=== PATIENT | male | born 1960 | race Caucasian/White ===

== ENCOUNTER 2017-11-02 12:42 | Emergency (ER) | payer BC ==
[2017-11-02 13:17] VITALS: BP 137/87
--- NOTE | 2017-11-02 14:07 | UC ---
Respiratory Complaint HPI - HPI Summary HPI Summary: 57 yo male with cough x 4 days usually not productive f/c no n/v/d Head hurts when he coughs hard time sleeping due to cough hx bronchitis - History of Current Complaint Chief Complaint: UCRespiratory Stated Complaint: SALAZAR/COUGH Time Seen by Provider: 11/02/17 13:54 Hx Obtained From: Patient Onset/Duration: Gradual Onset, Lasting Days Timing: Constant Severity Initially: Moderate Severity Currently: Moderate Pain Intensity: 7 Pain Scale Used: 0-10 Numeric Character: Cough: Nonproductive Aggravating Factors: Recumbent Position Alleviating Factors: Nothing Associated Signs And Symptoms: Positive: Fever, Chills, Wheezing, Nasal Congestion - Allergies/Home Medications Allergies/Adverse Reactions: Allergies Allergy/AdvReac Type Severity Reaction Status Date / Time meropenem Allergy Rash And Verified 11/02/17 13:06 Itching zyban Allergy Rash And Uncoded 11/02/17 13:07 Itching Home Medications: Home Medications Acetaminophen [Acetaminophen Extra Strength] 1,000 mg PO Q4H PRN 11/02/17 [ History Confirmed 11/02/17] Ultraman Multivitamin 1 tab PO DAILY 11/02/17 [History Confirmed 11/02/17] PMH/Surg Hx/FS Hx/Imm Hx Previously Healthy: Yes Endocrine History: Dyslipidemia Cardiovascular History: Cardiac Disease, Hypertension Respiratory History: Bronchitis, Pneumonia - Surgical History Surgical History: Yes Surgery Procedure, Year, and Place: double bypass; colonosopy and endoscopy done 05/2015 with polyps found; pt cannot remember if the polyps were removed. - Family History Known Family History: Positive: Cardiac Disease, Hypertension - Social History Alcohol Use: Daily Alcohol Amount: 2-3 PER DAY Substance Use Type: None Smoking Status (MU): Former Smoker Type: Cigarettes Have You Smoked in the Last Year: No - Immunization History Most Recent Influenza Vaccination: FALL 2013 Most Recent Tetanus Shot: UP TO DATE Most Recent Pneumonia Vaccination: NEVER Review of Systems Constitutional: Fever, Chills, Fatigue Skin: Negative Eyes: Negative ENT: Nasal Discharge Respiratory: Cough Cardiovascular: Negative Gastrointestinal: Negative Genitourinary: Negative Motor: Negative Neurovascular: Negative Musculoskeletal: Myalgia Neurological: Headache Psychological: Negative Is Patient Immunocompromised?: No All Other Systems Reviewed And Are Negative: Yes Physical Exam Triage Information Reviewed: Yes Appearance: Well-Appearing, No Pain Distress, Well-Nourished Vital Signs: Initial Vital Signs Temp 98.2 F 11/02/17 13:13 Pulse 96 11/02/17 13:13 Resp 20 11/02/17 13:13 BP 137/87 11/02/17 13:13 Pulse Ox 98 11/02/17 13:13 Eyes: Positive: Conjunctiva Clear ENT: Positive: Hearing grossly normal, Nasal congestion, TMs normal, Uvula midline. Negative: Nasal drainage, Trismus, Muffled voice, Hoarse voice, Dental tenderness, Sinus tenderness Neck: Positive: Supple, Nontender, No Lymphadenopathy Respiratory: Positive: No respiratory distress, No accessory muscle use, Wheezing - with forced expiration Cardiovascular: Positive: RRR, No Murmur Musculoskeletal: Positive: ROM Intact, No Edema Neurological: Positive: Alert Psychological Exam: Normal Skin Exam: Normal UC Diagnostic Evaluation - Laboratory O2 Sat by Pulse Oximetry: 98 - normal/not hypoxic Re-Evaluation - Re-Evaluation First Eval Re-Evaluation Time: 14:45 Change: Improved - lungs clear Respiratory Course/Dx - Differential Dx/Diagnosis Provider Diagnoses: acute bronchitis Discharge - Discharge Plan Condition: Stable Disposition: HOME Prescriptions: Amoxicillin PO (*) [Amoxicillin 875 MG (*)] 875 mg PO BID #14 tab Benzonatate CAP* [Tessalon CAP*] 100 - 200 mg PO TID PRN #28 cap PRN Reason: Cough predniSONE [Deltasone] 40 mg PO DAILY #8 tab Patient Education Materials: Acute Bronchitis (ED) Referrals: Celena VYAS,Chau Romeo [Primary Care Provider] - 5 Days (if not better) Additional Instructions: rest fluids use inhaler as directed recheck for new or worsening symptoms
[2017-11-02] MEDS: Albuterol 2.5 MG/3 ML NEB.SOL* (0.083%) INH ONE (14:10)
[2017-11-02] MEDS: Ipratropium 0.5MG/2.5ML NEB* 0.5 MG/2.5 ML NEB.SOLN INH ONE (14:10)
[2017-11-02] MEDS: predniSONE TAB* 20 MG PO ONE (15:01)
[2017-11-02] MEDS: Benzonatate CAP* 100 MG PO ONE (15:01)
[2017-11-02] MEDS: Albuterol HFA INHALER* 8 gm MDI INH ONE (15:01)
== END 2017-11-02 15:08 | disposition home or self-care (01) ==
LOC: UCCORT 12:42
DX: J20.9 Acute bronchitis, unspecified (principal); Z88.1 Allergy status to other antibiotic agents; Z88.8 Allergy status to other drugs, medicaments and biological substances; Z87.891 Personal history of nicotine dependence
CPT/HCPCS: 99213; A9270-GY; G0463; J7512

== ENCOUNTER 2018-03-08 14:56 | Emergency (ER) | payer BC ==
[2018-03-08 15:15] VITALS: BP 119/65
--- NOTE | 2018-03-15 01:31 | UC ---
Abdominal Pain Male HPI - HPI Summary HPI Summary: c/o abd pain similar to past episodes of pancreatitis, has not hat fevers or vomiting - History of Current Complaint Chief Complaint: UCGeneralIllness Stated Complaint: ABD AND SIDE PAIN Time Seen by Provider: 03/08/18 15:11 Hx Obtained From: Patient Onset/Duration: Gradual Onset, Lasting Days - 4 Timing: Constant Pain Intensity: 5 Pain Scale Used: 0-10 Numeric Location: Discrete At: RUQ Radiates: Yes Radiates to: Back, Flank Aggravating Factor(s): Food, Movement Alleviating Factor(s): Nothing Associated Signs And Symptoms: Positive: Decreased Appetite - Allergies/Home Medications Allergies/Adverse Reactions: Allergies Allergy/AdvReac Type Severity Reaction Status Date / Time meropenem Allergy Rash And Verified 03/08/18 16:47 Itching zyban Allergy Rash And Uncoded 03/08/18 16:47 Itching PMH/Surg Hx/FS Hx/Imm Hx Previously Healthy: No Endocrine History: Dyslipidemia Cardiovascular History: Cardiac Disease, Hypertension GI/ History: Gastroesophageal Reflux - Surgical History Surgical History: Yes Surgery Procedure, Year, and Place: .2013 double bypass; colonosopy and endoscopy done 05/2015 with polyps found; pt cannot remember if the polyps were removed. - Family History Known Family History: Positive: Cardiac Disease, Hypertension - Social History Occupation: Employed Full-time Lives: With Family Alcohol Use: Daily Alcohol Amount: 2-3 PER DAY Substance Use Type: None Smoking Status (MU): Former Smoker Type: Cigarettes Have You Smoked in the Last Year: No - Immunization History Most Recent Influenza Vaccination: FALL 2013 Most Recent Tetanus Shot: UP TO DATE Most Recent Pneumonia Vaccination: NEVER Review of Systems Constitutional: Negative Skin: Negative Eyes: Negative ENT: Negative Respiratory: Negative Cardiovascular: Negative Gastrointestinal: Abdominal Pain Genitourinary: Negative Motor: Negative Neurovascular: Negative Musculoskeletal: Negative Neurological: Negative Psychological: Negative Is Patient Immunocompromised?: No All Other Systems Reviewed And Are Negative: Yes Physical Exam Triage Information Reviewed: Yes Appearance: Ill-Appearing, Pain Distress, Obese Vital Signs: Initial Vital Signs Temp 97.8 F 03/08/18 15:10 Pulse 57 03/08/18 15:10 Resp 16 03/08/18 15:10 BP 119/65 03/08/18 15:10 Pulse Ox 99 03/08/18 15:10 Vital Signs Reviewed: Yes Eye Exam: Normal Eyes: Positive: Conjunctiva Clear ENT Exam: Normal ENT: Positive: Normal ENT inspection, Hearing grossly normal. Negative: Trismus , Muffled voice, Hoarse voice Dental Exam: Normal Neck exam: Normal Neck: Positive: Supple, Nontender Respiratory Exam: Normal Respiratory: Positive: Chest non-tender, Lungs clear, Normal breath sounds, No respiratory distress, No accessory muscle use Cardiovascular Exam: Normal Cardiovascular: Positive: RRR, No Murmur, Pulses Normal Abdominal Exam: Normal Abdomen Description: Positive: No Organomegaly, Distended, Guarding. Negative: CVA Tenderness (R), CVA Tenderness (L), McBurney's Point Tenderness, Peritoneal Signs Bowel Sounds: Positive: Present Musculoskeletal Exam: Normal Musculoskeletal: Positive: Strength Intact, ROM Intact, No Edema Neurological Exam: Normal Neurological: Positive: Alert, Muscle Tone Normal Psychological Exam: Normal Skin Exam: Normal Abd Pain Male Course/Dx - Course Course Of Treatment: remain NPO, d/c from urgent care to seek a higher level of care at [facility] emergency department - Differential Dx/Clinical Impression Provider Diagnoses: acute abdomen pain Discharge - Sign-Out/Discharge Documenting (check all that apply): Patient Departure - Discharge Plan Condition: Fair Disposition: HOME-RECOMMEND TO ED Patient Education Materials: Acute Abdominal Pain (ED) Referrals: Celena VYAS,Chau Romeo [Primary Care Provider] - Additional Instructions: We're discharging her from the urgent care to go directly to the emergency department a [facility] for further assessment of you abdomen pain.. Nothing to Eat or Drink until cleared by MD in the emergency department - Billing Disposition and Condition Condition: FAIR Disposition: Home-Recommend to ED
== END 2018-03-08 15:55 | disposition home health service (06) ==
LOC: UCEAST 14:56
DX: R10.11 Right upper quadrant pain (principal); I11.9 Hypertensive heart disease without heart failure; Z95.1 Presence of aortocoronary bypass graft; E78.5 Hyperlipidemia, unspecified; K21.9 Gastro-esophageal reflux disease without esophagitis; Z88.1 Allergy status to other antibiotic agents; Z88.8 Allergy status to other drugs, medicaments and biological substances; Z87.891 Personal history of nicotine dependence
CPT/HCPCS: 81003; 99212; G0463

== ENCOUNTER 2018-03-08 16:21 | Emergency (ER) | payer BC ==
[2018-03-08 19:48] LABS: ABS Basophils 0.1 10^3/ul (0-0.2); ABS Eosinophils 0.3 10^3/ul (0-0.6); ABS Lymphocytes 2.2 10^3/ul (1.0-4.8); ABS Monocytes 0.7 10^3/ul (0-0.8); ABS Nucleated RBC 0 10^3/ul; Eosinophil % 2.5 % (0-6); Hematocrit 47 % (42-52); Hemoglobin 16.4 g/dl (14.0-18.0); Lymphocyte % 21.1 % (25-47); Mean Corpuscular HGB Conc 35 g/dl (31-36); Mean Corpuscular Hemoglobin 30 pg (27-31); Mean Corpuscular Volume 87 fL (80-94); Mean Platelet Volume 8.2 um3 (7.4-10.4); Nucleated Red Blood Cells % 0.1; Platelet Count 193 10^3/ul (150-450); Red Blood Count 5.41 10^6/ul (4.00-5.40); Red Cell Distribution Width 13 % (10.5-15); White Blood Count 10.2 10^3/ul (3.5-10.8)
[2018-03-08 19:54] LABS: INR 0.98 (0.77-1.02)
[2018-03-08 20:06] LABS: EGFR Non-African American 90.8 (>60)
--- NOTE | 2018-03-08 20:58 | ED ---
Abdominal Pain/Male - HPI Summary HPI Summary: This patient is a 57 year old M presenting to [facility] accompanied by with a chief complaint of R flank pain radiating to lower abdomen that began 4 days ago worsening yesterday night. The patient rates the pain 5/10 in severity. Symptoms aggravated by bend over. Symptoms alleviated by nothing. Patient reports diarrhea. Patient denies urinary symptoms, nausea, and vomiting. Pt reports symptoms feel similar to previous pancreatitis. - History of Current Complaint Chief Complaint: EDFlankPain Stated Complaint: FLANK PAIN Time Seen by Provider: 03/08/18 20:54 Hx Obtained From: Patient Onset/Duration: Sudden Onset, Lasting Days, Still Present Timing: Constant Severity Initially: Moderate Severity Currently: Moderate Pain Intensity: 5 Pain Scale Used: 0-10 Numeric Location: Flank Radiates: Yes Radiates to: Other - Lower abd Aggravating Factor(s): Other: - Bending over Alleviating Factor(s): Nothing Associated Signs And Symptoms: Positive: Diarrhea, Other - Negative urinary symptoms. Negative: Nausea, Vomiting - Allergies/Home Medications Allergies/Adverse Reactions: Allergies Allergy/AdvReac Type Severity Reaction Status Date / Time meropenem Allergy Rash And Verified 03/08/18 16:47 Itching zyban Allergy Rash And Uncoded 03/08/18 16:47 Itching PMH/Surg Hx/FS Hx/Imm Hx Previously Healthy: No Endocrine/Hematology History: Denies: Hx Diabetes, Hx Systemic Lupus Erythematosus Cardiovascular History: Reports: Hx Coronary Artery Disease, Hx Hypercholesterolemia, Hx Hypertension Denies: Hx Angina - In past not since 2013, Hx Congestive Heart Failure, Hx Myocardial Infarction, Hx Valvular Heart Disease Respiratory History: Denies: Hx Asthma, Hx Chronic Obstructive Pulmonary Disease (COPD) GI History: Reports: Hx Gastroesophageal Reflux Disease, Other GI Disorders - ULCERATIVE COLITIS History: Denies: Hx Dialysis, Hx Renal Disease Musculoskeletal History: Denies: Hx Rheumatoid Arthritis Sensory History: Reports: Hx Contacts or Glasses Opthamlomology History: Reports: Hx Contacts or Glasses - Cancer History Hx Chemotherapy: No - Surgical History Surgery Procedure, Year, and Place: double bypass; colonosopy and endoscopy done 05/2015 with polyps found; pt cannot remember if the polyps were removed. - Immunization History Date of Tetanus Vaccine: PT STATES UNSURE Date of Influenza Vaccine: NONE Infectious Disease History: No Infectious Disease History: Denies: Hx Clostridium Difficile, Hx Hepatitis, Hx Human Immunodeficiency Virus (HIV), Hx of Known/Suspected MRSA, Hx Shingles, Hx Tuberculosis, History Other Infectious Disease, Traveled Outside the [place] in Last 30 Days - Family History Known Family History: Positive: Cardiac Disease, Hypertension - Social History Occupation: Employed Full-time Lives: With Family Alcohol Use: Daily Alcohol Amount: 2-3 PER DAY Hx Substance Use: No Substance Use Type: Reports: None Hx Tobacco Use: Yes Smoking Status (MU): Former Smoker Type: Cigarettes Have You Smoked in the Last Year: No Review of Systems Positive: Abdominal Pain, Diarrhea. Negative: Vomiting, Nausea Positive: no symptoms reported All Other Systems Reviewed And Are Negative: Yes Physical Exam - Summary Physical Exam Summary: Appearance: Well-appearing, Well-nourished, lying in bed comfortably Skin: Warm, dry, no obvious rash Eyes: sclera anicteric, no conjunctival pallor ENT: mucous membranes moist, pharynx appears normal Neck: Supple, nontender Respiratory: Clear to auscultation, no signs of respiratory distress Cardiovascular: Normal S1, S2. No murmurs. Normal distal pulses in tibial and radial bilaterally. Abdomen: Soft, Tenderness in R flank into RUQ, normal active bowel sounds present Musculoskeletal: Normal, Strength/ROM Intact Neurological: A&Ox3, awake and alert, mentation is normal, speech is fluent and appropriate Psychiatric: affect is normal, does not appear anxious or depressed Triage Information Reviewed: Yes Vital Signs On Initial Exam: Initial Vitals Temp Pulse Resp BP Pulse Ox 98.2 F 76 16 122/65 98 03/08/18 16:43 03/08/18 16:43 03/08/18 16:43 03/08/18 16:43 03/08/18 16:43 Vital Signs Reviewed: Yes Diagnostics - Vital Signs Vital Signs Temp Pulse Resp BP Pulse Ox 03/08/18 20:12 97.7 F 60 16 130/81 95 03/08/18 18:27 98.2 F 60 16 128/71 94 03/08/18 16:43 98.2 F 76 16 122/65 98 - Laboratory Lab Results: Lab Results 03/08/18 03/08/18 03/08/18 Range/Units 19:26 19:26 19:26 WBC 10.2 (3.5-10.8) 10^3/ul RBC 5.41 H (4.00-5.40) 10^6/ul Hgb 16.4 (14.0-18.0) g/dl Hct 47 (42-52) % MCV 87 (80-94) fL MCH 30 (27-31) pg MCHC 35 (31-36) g/dl RDW 13 (10.5-15) % Plt Count 193 (150-450) 10^3/ul MPV 8.2 (7.4-10.4) um3 Neut % (Auto) 68.9 (38-83) % Lymph % (Auto) 21.1 L (25-47) % [place] % (Auto) 6.9 (0-7) % Eos % (Auto) 2.5 (0-6) % Baso % (Auto) 0.6 (0-2) % Absolute Neuts (auto) 7.0 (1.5-7.7) 10^3/ul Absolute Lymphs (auto) 2.2 (1.0-4.8) 10^3/ul Absolute Monos (auto) 0.7 (0-0.8) 10^3/ul Absolute Eos (auto) 0.3 (0-0.6) 10^3/ul Absolute Basos (auto) 0.1 (0-0.2) 10^3/ul Absolute Nucleated RBC 0 10^3/ul Nucleated RBC % 0.1 INR (Anticoag Therapy) (0.77-1.02) Sodium 139 (135-145) mmol/L Potassium 4.1 (3.5-5.0) mmol/L Chloride 104 (101-111) mmol/L Carbon Dioxide 28 (22-32) mmol/L Anion Gap 7 (2-11) mmol/L BUN 14 (6-24) mg/dL Creatinine 0.87 (0.67-1.17) mg/dL Est GFR ( Amer) 109.8 (>60) Est GFR (Non-Af Amer) 90.8 (>60) BUN/Creatinine Ratio 16.1 (8-20) Glucose 98 (70-100) mg/dL Lactic Acid 0.6 (0.5-2.0) mmol/L Calcium 9.6 (8.6-10.3) mg/dL Total Bilirubin 0.60 (0.2-1.0) mg/dL AST 26 (13-39) U/L ALT 40 (7-52) U/L Alkaline Phosphatase 54 (34-104) U/L C-Reactive Protein 4.36 (<8.01) mg/L Total Protein 7.2 (6.4-8.9) g/dL Albumin 4.5 (3.2-5.2) g/dL Globulin 2.7 (2-4) g/dL Albumin/Globulin Ratio 1.7 (1-3) Lipase 30 (11.0-82.0) U/L Serum Alcohol < 10 (<10) mg/dL 03/08/18 Range/Units 19:26 WBC (3.5-10.8) 10^3/ul RBC (4.00-5.40) 10^6/ul Hgb (14.0-18.0) g/dl Hct (42-52) % MCV (80-94) fL MCH (27-31) pg MCHC (31-36) g/dl RDW (10.5-15) % Plt Count (150-450) 10^3/ul MPV (7.4-10.4) um3 Neut % (Auto) (38-83) % Lymph % (Auto) (25-47) % [place] % (Auto) (0-7) % Eos % (Auto) (0-6) % Baso % (Auto) (0-2) % Absolute Neuts (auto) (1.5-7.7) 10^3/ul Absolute Lymphs (auto) (1.0-4.8) 10^3/ul Absolute Monos (auto) (0-0.8) 10^3/ul Absolute Eos (auto) (0-0.6) 10^3/ul Absolute Basos (auto) (0-0.2) 10^3/ul Absolute Nucleated RBC 10^3/ul Nucleated RBC % INR (Anticoag Therapy) 0.98 (0.77-1.02) Sodium (135-145) mmol/L Potassium (3.5-5.0) mmol/L Chloride (101-111) mmol/L Carbon Dioxide (22-32) mmol/L Anion Gap (2-11) mmol/L BUN (6-24) mg/dL Creatinine (0.67-1.17) mg/dL Est GFR ( Amer) (>60) Est GFR (Non-Af Amer) (>60) BUN/Creatinine Ratio (8-20) Glucose (70-100) mg/dL Lactic Acid (0.5-2.0) mmol/L Calcium (8.6-10.3) mg/dL Total Bilirubin (0.2-1.0) mg/dL AST (13-39) U/L ALT (7-52) U/L Alkaline Phosphatase (34-104) U/L C-Reactive Protein (<8.01) mg/L Total Protein (6.4-8.9) g/dL Albumin (3.2-5.2) g/dL Globulin (2-4) g/dL Albumin/Globulin Ratio (1-3) Lipase (11.0-82.0) U/L Serum Alcohol (<10) mg/dL Result Diagrams: 03/08/18 19:26 03/08/18 19:26 Lab Statement: Any lab studies that have been ordered have been reviewed, and results considered in the medical decision making process. - CT CT Abdomen and Pelvis CT Interpretation Completed By: Radiologist - CT abdomen and pelvis reveals, per radiologist, Liver: mild hepatic steatosis. Stomach: small sliding hiatal hernia. Bowel: no evidence of small bowel obstruction or mass. Normal appendix is identified. Bones: No suspicious osseous lesions. 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 There is a rudimentary S1-S2 disk. Grade 1 anterolisthesis of L5 on S1 secondary to bilateral pars defects at L5. ED physician has reviewed this radiology report. - Additional Comments Diagnostic Additional Comments: EKG taken at 2040 reveals sinus tachycardia at 125 BPM, P waves, QRS complex, and T waves are within normal limits, T waves and intervals are normal, no ischemic changes. EKG taken at 2033 reveals sinus bradycardia at 51 BPM, P waves, QRS complex, and T waves are within normal limits, T waves and intervals are normal, no ischemic changes. Abdominal Pain Fem Course/Dx - Diagnoses Provider Diagnoses: Back pain Discharge - Sign-Out/Discharge Documenting (check all that apply): Patient Departure - Discharge Plan Condition: Good Disposition: HOME Patient Education Materials: Back Pain (ED) Referrals: Chau Weiss [Primary Care Provider] - - Billing Disposition and Condition Condition: GOOD Disposition: Home
[2018-03-08] MEDS ORDERED: Morphine VIAL* 4 MG/ML VIAL (1 ml vial) IV ONE (21:00)
[2018-03-08] MEDS ORDERED: Iohexol 300* (CONTRAST) 10 ML SDV IV ONE (21:13)
[2018-03-08 22:45] LABS: Urine Appearance Clear; Urine Blood Negative (Negative); Urine Color Yellow; Urine Ketones Trace (Negative); Urine Protein Negative (Negative); Urine Specific Gravity 1.026 (1.010-1.030); Urine Urobilinogen Negative (Negative)
[2018-03-09 01:38] VITALS: BP 127/75
--- NOTE | 2018-03-09 08:30 | RAD ---
CLINICAL HISTORY: Right flank and right upper quadrant pain COMPARISON: Similar CT examination dated January 17, 2018 TECHNIQUE: Contrast enhanced CT examination of the abdomen and pelvis from the lung bases through the initial tuberosities. The patient received 143 mL Omnipaque 300 intravenously prior to imaging. FINDINGS: Unless otherwise specified comparisons below reference January 17, 2018 CT of the abdomen and pelvis. VISUALIZED LUNG BASES: The visualized lung bases are grossly clear. There is no pleural effusion. ABDOMEN AND PELVIS: Similar to the prior CT examination the liver is mildly enlarged measuring just under 21 cm in greatest cephalocaudal dimension. The liver is homogenously hypodense relative to the spleen. There are no focal suspicious masses. There is no surface irregularity or intrahepatic biliary duct dilatation. The spleen, pancreas and adrenal glands are grossly normal in appearance. The gallbladder is normal. The kidneys are normal in appearance without focal mass, calcification or signs of hydronephrosis. Evaluation of the gastrointestinal tract is limited in the absence of oral contrast. The small and large bowel are not distended. The appendix is located in the right lower quadrant with several foci of intraluminal gas measuring 7 mm in diameter. There are no periappendiceal inflammatory changes. There is no gross retroperitoneal or mesenteric lymphadenopathy. The pelvic viscera is normal in appearance. The abdominal aorta and iliac arteries are normal in course and diameter. There is coarse atherosclerotic calcification at the inferior most infrarenal abdominal aorta extending into the bilateral common iliac arteries. Degenerative changes include multilevel loss of intervertebral disc height involving the lower thoracic and lumbar spine.There are no sinister bone lesions. IMPRESSION: 1. No CT apparent acute abnormalities that would account for the patient's current clinical presentation. 2. Hepatomegaly with likely hepatic steatosis. 3. Additional chronic and degenerative changes described in the body of the report.
== END 2018-03-09 01:40 | disposition home or self-care (01) ==
LOC: ED 16:21
DX: R10.9 Unspecified abdominal pain (principal); M54.9 Dorsalgia, unspecified; R00.0 Tachycardia, unspecified; R00.1 Bradycardia, unspecified; K76.0 Fatty (change of) liver, not elsewhere classified; K44.9 Diaphragmatic hernia without obstruction or gangrene; M43.17 Spondylolisthesis, lumbosacral region; Z87.891 Personal history of nicotine dependence; Z88.8 Allergy status to other drugs, medicaments and biological substances
CPT/HCPCS: 36415; 74177; 80053; 80320; 81003; 83605; 83690; 85025; 85610; 86140; 93005; 96374; 99283; G0480; J2270; Q9967

== ENCOUNTER 2018-06-07 09:15 | Emergency (ER) | payer BC ==
[2018-06-07 09:51] VITALS: BP 107/80
--- NOTE | 2018-06-07 10:48 | UC ---
Throat Pain/Nasal Candelario HPI - HPI Summary HPI Summary: Pt presents with c/o worsening nasal congestion, cough, malaise, chills, ST X 5 days. Pt reports that his daughter is getting tomorrow. - History of Current Complaint Chief Complaint: UCGeneralIllness Stated Complaint: UPPER RESPIRATORY Time Seen by Provider: 06/07/18 10:39 Hx Obtained From: Patient Onset/Duration: Sudden Onset, Lasting Days, Still Present, Worse Since - onset Severity: Moderate Pain Intensity: 6 Cough: Nonproductive Associated Signs & Symptoms: Positive: Wheezing, Sinus Discomfort, Nasal Discharge - Epiglottits Risk Factors Epiglottis Risk Factors: Negative - Allergies/Home Medications Allergies/Adverse Reactions: Allergies Allergy/AdvReac Type Severity Reaction Status Date / Time meropenem Allergy Rash And Verified 06/07/18 09:52 Itching zyban Allergy Rash And Uncoded 06/07/18 09:52 Itching PMH/Surg Hx/FS Hx/Imm Hx Previously Healthy: Yes - Surgical History Surgical History: Yes Surgery Procedure, Year, and Place: .2013 double bypass; colonosopy and endoscopy done 05/2015 with polyps found; pt cannot remember if the polyps were removed. - Family History Known Family History: Positive: Cardiac Disease, Hypertension - Social History Occupation: Employed Full-time Lives: With Family Alcohol Use: Daily Alcohol Amount: 2-3 PER DAY Substance Use Type: None Smoking Status (MU): Former Smoker Type: Cigarettes Have You Smoked in the Last Year: No - Immunization History Most Recent Influenza Vaccination: FALL 2013 Most Recent Tetanus Shot: UP TO DATE Most Recent Pneumonia Vaccination: NEVER Vaccination Up to Date: Yes Review of Systems Constitutional: Chills, Fatigue Skin: Negative Eyes: Negative ENT: Sore Throat, Nasal Discharge, Sinus Congestion, Sinus Pain/Tenderness Respiratory: Cough Cardiovascular: Negative Gastrointestinal: Negative Genitourinary: Negative Motor: Negative Neurovascular: Negative Musculoskeletal: Myalgia Neurological: Headache Psychological: Negative Is Patient Immunocompromised?: No All Other Systems Reviewed And Are Negative: Yes Physical Exam Triage Information Reviewed: Yes Appearance: Ill-Appearing Vital Signs: Initial Vital Signs Temp 97.6 F 06/07/18 09:47 Pulse 76 06/07/18 09:47 Resp 18 06/07/18 09:47 BP 107/80 06/07/18 09:47 Pulse Ox 97 06/07/18 09:47 Vital Signs Reviewed: Yes Eye Exam: Normal ENT: Positive: Nasal congestion, TM bulging, Sinus tenderness Dental Exam: Normal Neck exam: Normal Respiratory Exam: Normal Respiratory: Positive: Decreased breath sounds Cardiovascular Exam: Normal Musculoskeletal Exam: Normal Neurological Exam: Normal Psychological Exam: Normal Skin Exam: Normal Throat Pain/Nasal Course/Dx - Differential Dx/Diagnosis Differential Diagnosis/HQI/PQRI: Otitis Media, Pharyngitis, URI Provider Diagnoses: bronchitis Discharge - Sign-Out/Discharge Documenting (check all that apply): Patient Departure All imaging exams completed and their final reports reviewed: No Studies - Discharge Plan Condition: Stable Disposition: HOME Prescriptions: Azithromycin TAB* [Zithromax TAB (Z-KELLIE) 250 mg #6 tabs] 2 tab PO .TODAY, THEN 1 DAILY #1 kellie predniSONE TAB* [Deltasone 20 MG TAB*] 20 mg PO DAILY #4 tab Patient Education Materials: Sinusitis (ED), Acute Bronchitis (ED) Referrals: Celena VYAS,Chau Romeo [Primary Care Provider] - If Needed - Billing Disposition and Condition Condition: STABLE Disposition: Home - Attestation Statements Provider Attestation: I was available for consult. This patient was seen by the GUY. The patient was not presented to, seen by, or examined by me. -Frantz
== END 2018-06-07 10:53 | disposition home or self-care (01) ==
LOC: UCCORT 09:15
DX: J40 Bronchitis, not specified as acute or chronic (principal); Z88.1 Allergy status to other antibiotic agents; Z88.8 Allergy status to other drugs, medicaments and biological substances; Z87.891 Personal history of nicotine dependence
CPT/HCPCS: 99212; G0463

== ENCOUNTER 2018-09-11 16:58 | Emergency (ER) | payer BC ==
[2018-09-11 17:41] VITALS: BP 134/78
--- NOTE | 2018-09-11 17:57 | UC ---
Throat Pain/Nasal Candelario HPI - HPI Summary HPI Summary: 58-year-old male 58-year-old male comes in to clinic today with a chief complaint of runny nose sore throat sinus pressure and chills. He has not looked at the rhinorrhea is no color it is. Reports he gets recurrent sinus infections. Has had a cough. Is not short of breath. When taken some acetaminophen which does help. Been having some body aches but then not very bad. - History of Current Complaint Chief Complaint: UCRespiratory Stated Complaint: SINUS COMPLAINT,COUGH Time Seen by Provider: 09/11/18 17:50 Pain Intensity: 6 - Allergies/Home Medications Allergies/Adverse Reactions: Allergies Allergy/AdvReac Type Severity Reaction Status Date / Time meropenem Allergy Rash And Verified 09/11/18 17:33 Itching zyban Allergy Rash And Uncoded 09/11/18 17:33 Itching PMH/Surg Hx/FS Hx/Imm Hx Previously Healthy: Yes Endocrine History: Dyslipidemia Cardiovascular History: Cardiac Disease, Hypertension GI/ History: Gastroesophageal Reflux - Surgical History Surgical History: Yes Surgery Procedure, Year, and Place: double bypass; colonosopy and endoscopy done 05/2015 with polyps found; pt cannot remember if the polyps were removed. - Family History Known Family History: Positive: Cardiac Disease, Hypertension - Social History Alcohol Use: Weekly Alcohol Amount: 2-3 PER DAY Substance Use Type: None Smoking Status (MU): Former Smoker Type: Cigarettes Have You Smoked in the Last Year: No - Immunization History Most Recent Influenza Vaccination: FALL 2013 Most Recent Tetanus Shot: UP TO DATE Most Recent Pneumonia Vaccination: NEVER Vaccination Up to Date: Yes Review of Systems All Other Systems Reviewed And Are Negative: Yes Constitutional: Positive: Chills Skin: Positive: Negative Eyes: Positive: Negative ENT: Positive: Sore Throat, Nasal Discharge, Sinus Congestion, Sinus Pain/ Tenderness Respiratory: Positive: Cough Cardiovascular: Positive: Negative Gastrointestinal: Positive: Negative Motor: Positive: Negative Neurovascular: Positive: Negative Musculoskeletal: Positive: Negative Neurological: Positive: Negative Psychological: Positive: Negative Is Patient Immunocompromised?: No Physical Exam Triage Information Reviewed: Yes Appearance: No Pain Distress, Well-Nourished, Ill-Appearing - MILD Vital Signs: Initial Vital Signs Temp 97.4 F 09/11/18 17:36 Pulse 78 09/11/18 17:36 Resp 20 09/11/18 17:36 BP 134/78 09/11/18 17:36 Pulse Ox 97 09/11/18 17:36 Vital Signs Reviewed: Yes Eye Exam: Normal Eyes: Positive: Conjunctiva Clear ENT: Positive: Pharyngeal erythema, Nasal congestion, Nasal drainage, TMs normal Neck exam: Normal Neck: Positive: Supple Respiratory: Positive: Lungs clear, Normal breath sounds, No respiratory distress Cardiovascular: Positive: RRR Musculoskeletal Exam: Normal Musculoskeletal: Positive: Strength Intact, ROM Intact Neurological Exam: Normal Neurological: Positive: Alert, Muscle Tone Normal Psychological Exam: Normal Psychological: Positive: Age Appropriate Behavior Skin Exam: Normal Throat Pain/Nasal Course/Dx - Course Course Of Treatment: DISCUSSED VIRAL VERSES BACTERIAL INFECTION AND THE ROLE OF ANTIBIOTICS. THE PATIENT WISHES TO BE ON ANTIBIOTIC AT THIS TIME. - Differential Dx/Diagnosis Provider Diagnosis: Sinusitis Discharge - Sign-Out/Discharge Documenting (check all that apply): Patient Departure All imaging exams completed and their final reports reviewed: No Studies - Discharge Plan Condition: Stable Disposition: HOME Prescriptions: Amoxicillin/Clavulanate TAB* [Augmentin TAB 875*] 875 mg PO BID #20 tab Patient Education Materials: Sinusitis (ED), Upper Respiratory Infection (ED) Referrals: Celena VYAS,Chau Romeo [Primary Care Provider] - Additional Instructions: FOLLOW UP WITH YOUR DOCTOR IF NOT COMPLETELY IMPROVED. GET RECHECKED FOR ANY WORSENING OF YOUR CONDITION OR QUESTIONS OR CONCERNS. - Billing Disposition and Condition Condition: STABLE Disposition: Home
== END 2018-09-11 18:02 | disposition home or self-care (01) ==
LOC: UCCORT 16:58
DX: J32.9 Chronic sinusitis, unspecified (principal); Z88.1 Allergy status to other antibiotic agents; Z88.8 Allergy status to other drugs, medicaments and biological substances; I10 Essential (primary) hypertension; Z87.891 Personal history of nicotine dependence
CPT/HCPCS: 99212; G0463